=== PATIENT | female | born 1995 | race Caucasian/White ===

== ENCOUNTER 2018-01-24 10:21 | Emergency (ER) | payer BC, OTHER ==
[2018-01-24 10:39] VITALS: BP 112/70
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
--- NOTE | 2018-01-24 11:47 | RAD ---
Indication: Right ankle injury. 3 views of the right ankle demonstrate soft tissue swelling laterally. Ankle mortise is intact. IMPRESSION: No fracture of the right ankle is noted. Soft tissue swelling is noted laterally.
--- NOTE | 2018-01-24 11:48 | RAD ---
Indication: Right lower leg injury. 2 views of the right lower leg demonstrates no fracture. No other bone or joint abnormality is identified. IMPRESSION: No fracture of the right lower leg is present.
== END 2018-01-24 12:15 | disposition home or self-care (01) ==
LOC: UCEAST 10:21
DX: M25.571 Pain in right ankle and joints of right foot (principal)
CPT/HCPCS: 99212; G0463

== ENCOUNTER 2018-05-20 14:55 | Emergency (ER) | payer OTHER ==
[2018-05-20 15:05] VITALS: BP 122/82
--- NOTE | 2018-05-20 16:20 | UC ---
Throat Pain/Nasal Fritz HPI - HPI Summary HPI Summary: 23-year-old female presents with 3 week history of sore throat and bilateral ear pain. Associated with severe fatigue. Denies fever, chills, nasal congestion, nasal drainage, dysphagia, cough, chest pain, shortness of breath, abdominal pain, nausea, or vomiting. - History of Current Complaint Chief Complaint: UCRespiratory Stated Complaint: SORE THROAT,EAR PAIN,COLD Time Seen by Provider: 05/20/18 16:02 Hx Obtained From: Patient Hx Last Menstrual Period: now Onset/Duration: Lasting Weeks - 3 Severity: Moderate Pain Intensity: 4 Cough: None Associated Signs & Symptoms: Negative: Dysphagia, Drooling, Wheezing, Hoarseness , Sinus Discomfort, Nasal Discharge, Fever, Vomiting, Rash - Allergies/Home Medications Allergies/Adverse Reactions: Allergies Allergy/AdvReac Type Severity Reaction Status Date / Time No Known Allergies Allergy Unverified 05/20/18 15:06 PMH/Surg Hx/FS Hx/Imm Hx Previously Healthy: Yes - Denies significant PMH - Surgical History Surgical History: Yes Surgery Procedure, Year, and Place: oral - Family History Family History: Noncontributory - Social History Occupation: Employed Full-time Lives: With Family Alcohol Use: Occasionally Substance Use Type: None Smoking Status (MU): Never Smoked Tobacco Review of Systems Constitutional: Negative Skin: Negative Eyes: Negative ENT: Sore Throat, Ear Ache Respiratory: Negative Cardiovascular: Negative Gastrointestinal: Negative Is Patient Immunocompromised?: No All Other Systems Reviewed And Are Negative: Yes Physical Exam Triage Information Reviewed: Yes Appearance: Well-Appearing, No Pain Distress, Well-Nourished Vital Signs: Initial Vital Signs Temp 97.8 F 05/20/18 15:03 Pulse 71 05/20/18 15:03 Resp 18 05/20/18 15:03 BP 122/82 05/20/18 15:03 Pulse Ox 99 05/20/18 15:03 Eyes: Positive: Conjunctiva Clear. Negative: Discharge ENT: Positive: Hearing grossly normal, Pharyngeal erythema, TMs normal, Tonsillar swelling - 2+, Uvula midline. Negative: Nasal congestion, Nasal drainage, Tonsillar exudate, Trismus, Muffled voice, Hoarse voice, Sinus tenderness Neck: Positive: Supple, Nontender, No Lymphadenopathy Respiratory: Positive: Lungs clear, Normal breath sounds, No respiratory distress Cardiovascular: Positive: RRR, No Murmur, Pulses Normal Abdomen Description: Positive: No Organomegaly, Soft, Other: - Mild LUQ tenderness. Negative: Distended, Guarding Bowel Sounds: Positive: Present Neurological: Positive: Alert Skin Exam: Normal Diagnostics - Laboratory Diagnostic Studies Completed/Ordered: rapid strep negative Throat Pain/Nasal Course/Dx - Course Course Of Treatment: 23-year-old female presents with 3 week history of sore throat and fatigue. Exam reveals some pharyngeal erythema mild tonsillar edema without exudate. She did have some mild left upper quadrant tenderness to her abdomen although there was no organomegaly appreciated. Rapid strep was negative. Considering the duration of her symptoms have a high suspicion for mononucleosis. Will test for confirmation. Recommend continued symptomatic treatment. She is to follow-up with primary care provider if symptoms persist. Warning symptoms were discussed with the patient. Verbalizes understanding and agrees with plan of care. - Differential Dx/Diagnosis Differential Diagnosis/HQI/PQRI: Mononucleosis, Pharyngitis, Tonsillitis Provider Diagnoses: Viral pharyngitis Discharge - Sign-Out/Discharge Documenting (check all that apply): Patient Departure All imaging exams completed and their final reports reviewed: No Studies - Discharge Plan Condition: Stable Disposition: HOME Patient Education Materials: Pharyngitis (ED) Referrals: Lucie Parrish [Primary Care Provider] - Additional Instructions: Rapid strep test performed in the clinic today was negative. Considering the duration of your symptoms and the extreme fatigue that you are reporting your symptoms are suspicious for mononucleosis. We will test you for mono today. It will take several days to get these results back. [place] is a viral infection and does not respond to antibiotics and needs to run its course. It may take several weeks to fully recover from this infection if it is mono. Be sure to get plenty of rest. Drink plenty of fluids and stay well-hydrated. Use salt water gargles several times a day to help with the sore throat. Take an bnhr-awq-cljksto pain medication such as acetaminophen (Tylenol) or ibuprofen (Advil, Motrin) according to directions as needed for pain. You may use Chloraseptic spray or Cepacol lozenges for some temporary pain relief from your sore throat. Follow-up with your primary care provider if symptoms continue to persist. Seek immediate medical attention if you develop fever greater than 100.5 F, have worsening of pain despite use of [id number] pain medications, you're unable to swallow, have difficulty breathing, or any worsening of symptoms. - Billing Disposition and Condition Condition: STABLE Disposition: Home
--- NOTE | 2018-05-22 16:53 | UC ---
- Progress Note Progress Note: neg mono + EBV Ag and IgG No change breanne 05/22/18 Discharge - Sign-Out/Discharge Documenting (check all that apply): Post-Discharge Follow Up All imaging exams completed and their final reports reviewed: No Studies - Discharge Plan Condition: Stable Disposition: HOME Patient Education Materials: Pharyngitis (ED) Referrals: Lucie Parrish [Primary Care Provider] - Additional Instructions: Rapid strep test performed in the clinic today was negative. Considering the duration of your symptoms and the extreme fatigue that you are reporting your symptoms are suspicious for mononucleosis. We will test you for mono today. It will take several days to get these results back. [place] is a viral infection and does not respond to antibiotics and needs to run its course. It may take several weeks to fully recover from this infection if it is mono. Be sure to get plenty of rest. Drink plenty of fluids and stay well-hydrated. Use salt water gargles several times a day to help with the sore throat. Take an sntj-hgn-gptxxap pain medication such as acetaminophen (Tylenol) or ibuprofen (Advil, Motrin) according to directions as needed for pain. You may use Chloraseptic spray or Cepacol lozenges for some temporary pain relief from your sore throat. Follow-up with your primary care provider if symptoms continue to persist. Seek immediate medical attention if you develop fever greater than 100.5 F, have worsening of pain despite use of ywkn-can-hrdjiuf pain medications, you're unable to swallow, have difficulty breathing, or any worsening of symptoms. - Billing Disposition and Condition Condition: STABLE Disposition: Home
== END 2018-05-20 16:42 | disposition home or self-care (01) ==
LOC: UCEAST 14:55
DX: J02.8 Acute pharyngitis due to other specified organisms (principal); R53.83 Other fatigue
CPT/HCPCS: 36415; 86308; 86664; 86665; 87651; 99211; G0463

== ENCOUNTER 2019-10-15 10:06 | Emergency (ER) | payer OTHER ==
--- OUTSIDE RECORDS SUMMARY | 2019-10-15 10:24 | XMS REPORT | Continuity of Care Document ---
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 Abstracted:2011 ; Source: New Immunization Record DTaPHib administered Note: Abstracted:03/26/2012 ; Source: New Immunization Record polio, inactivated (IPV) administered Note: Abstracted:2011 ; Source: New Immunization Record hep B (ped/adol, 3 dose) administered Note: Abstracted:2011 ; Source: New Immunization Record hep B (ped/adol, 3 dose) administered Note: Abstracted:2011 ; Source: New Immunization Record Payers Payer name Insurance type Covered republican ID Authorization(s) Anabelle Boggs [id number] Social History Type Description Quantity Date Captured Comments Alcohol Use Details Caffeine Use Details soda occ per day Tobacco Use Status Unknown Smoking Status Never smoker Non-Smoking Tobacco : No Details Available : No Details Available 2019 Use Details Vital Signs Date / Height Weight BMI Pulse Blood Temperature Respiratory Body Head BMI Time: Rate Pressure Rate Surface Circumference percentile Area 67.00 237.22 37.1 88 106/80 98.40 F 16 /min 09.22 in lbs 5 /min mm[Hg] meter(2) 3:27 kg/m PM eter (2) Chief Complaint And Reason For Visit Most recent encounter only, dated '08/16/2019 15:00'. Sore throat (chief complaint). Description: The problem is severe. Pain scale: 7/10. Additional information: Symptoms started 08/13/2019. Per patient, headache, neck pain , difficult to move neck. Both ears painful and dizzy. ibuprofen with little effect. Reason For Referral Reason For Referral Unknown Plan Of Care Date Type Action Status Referral Referred To: ordered JORDAN MCKENZIE MD [address] [place], [address] [phone] Ordered: Referrals: Orthopedic Surgery. JORDAN MCKENZIE MD. Evaluate and treat Appointment date/timeframe: 02/02/2018 Referral Ordered: ordered Xray Spine Cervical Referral Ordered: ordered Xray Spine Lumbar complete Referral Ordered: ordered Xray Spine Thoracic complete Referral Referred To: ordered AVRIL VICTORIA MD [address] [facility] [address] [place], [address] [phone] Ordered: Referrals: Obstetrics. AVRIL VICTORIA MD. Evaluate and treat Referral Ordered: ordered Xray Shoulder Complete (Must choose side) Left Referral Referred To: ordered SUZIE CHAPARRO [address] [place], [address] [phone] Ordered: SUZIE CHAPARRO. Nutrition. Consult and treat. Referral Ordered: ordered U/S Abdomen complete Referral Ordered: ordered U/S Abdomen limited (for spec organ, must value organ in site) Referral Ordered: ordered U/S OB Follow-up Referral Ordered: ordered U/S OB 1st trimester <14 weeks Referral Ordered: ordered U/S Transvaginal TECHNICAL DATA ANALYST Date Type Problem Goal Intervention Status Start Date Unknown History Of Present Illness Encounter Date Complaint History Of Present Illness Sore throat The problem is severe. Pain scale: 7/10. Additional information: Symptoms started 08/13/2019. Per patient, headache, neck pain, difficult to move neck. Both ears painful and dizzy. ibuprofen with little effect. Functional Status Encounter Date Functional Assessment Cognitive Assessment N/A Orientation - Oriented to time, place, person, situation. Medications Administered Medication Instructions Dosage Effective Dates (start - stop) Status Comments Drug Treatment Unknown Instructions Date Instruction Additional Information Start amoxicillin , two twice a day Related to Strep pharyngitis for ten days, Routine carePAP/HPVRGC/chl (not Related to Routine gynecological interested in bloodwork)lidocaine TID examination for vestibulits- discussed and followup 2 weeks- also d/w pt OTC recticare if ins will not cover. Constipation discussed try no gluten and see if better PT will continue her healthy diet, Related to Edema, unspecified increase fiber, continue water intake of 115 ounces per day , decrease sugar in the diet and call for further needs or concerns. PT's lipomas are benign and she will Related to Multiple lipomas continue to monitor those areas and call for further needs or concerns. Labs ordered , pt will stay under Related to Weight gain with edema 2000mg of sodium per day and will continue to drink plenty of fluids. PT will use Silvadene cream twice per Related to Sunburn day until the sunburn resolves. Continue to drink plenty of fluids. Risks and benefits of new Related to Acute non-recurrent medication discussed. Start frontal sinusitis azithromycin. drink plenty of fluids. Use an expectorant. small cyst vaginal- hot compresses- Related to Vaginal cyst call if changes followup 2 months and if still present will presley routine carePAPGC/chlpelvic pain- Related to Routine gynecological check pelvic US adn culturesirreg examination bleeding - consider patch or ring as does not think will remember BCP- pt will considerdysmenorrhea- discussed motrin/ naprosyn around the clock 24-48 hrs adn take TREY with menses. xray of thoracic and lumbar were Related to Acute back pain, negative, will take ibuprofen and unspecified back location, tizanidine, muscle relaxer and if unspecified back pain laterality symptoms persist or become more pronounced then follow up with primary doctor for a possible referral and MRI. neck pain , will prescribe Ibuprofen Related to Neck pain with tenderness and tizanidine muscle relaxer Avoid of neck after whiplash injury to heavy lifting or straining. Apply Ice neck alternating with heat, and use otc NSAIDs such as naproxen or Ibuprofen as needed.Followup with your primary physician in 5-7 days for recheck, sooner if new or worsening symptoms occur. Thank you for choosing the [facility] Walk In. We hope that you will be feeling better soon.Any condition can change and some diseases may worsen despite proper treatment. Other problems may begin with vague or unusual symptoms and only over time will the problem become more clear, making it possible to arrive at the correct diagnosis. Your visit today is not a substitute for, or an effort to provide complete medical care. In most cases, you should let your primary care doctor check you again. Tell your doctor about any new or lasting problems. If you do not have a primary care provider, you have been given a list today of local providers who are accepting new patients. All x-rays are interpreted by a radiologist, usually within 48 hours. If there is any important difference between the radiologist's interpretation and what you were told today by the provider, you will be notified. If you had cultures done today, results will be available in 72 hours, depending on specimen. Get lots of rest. Maintain good clear Related to Viral URI fluid intake to stay well hydrated. Frequent handwashing to prevent spread of germs. Please avoid exposure to tobacco smoke and/or polluted air. You can use Otc cough and cold medications such as Afrin nasal spray and robitussin to help with symptoms. Take Tylenol (acetaminophen), Advil(ibuprofen), or alleve(naproxen) as needed for fever or aches, dosage according to package directions. Please follow-up with your primary care provider within 1 week for recheck.You can return to work or school when fever free for 24 hours without the use of fever reducing medication.- Thank you for choosing the [facility] Walk In. We hope that you will be feeling better soon.Any condition can change and some diseases may worsen despite proper treatment. Other problems may begin with vague or unusual symptoms and only over time will the problem become more clear, making it possible to arrive at the correct diagnosis. Your visit today is not a substitute for, or an effort to provide complete medical care. In most cases, you should let your primary care doctor check you again. Tell your doctor about any new or lasting problems. If you do not have a primary care provider, you have been given a list today of local providers who are accepting new patients. All x-rays are interpreted by a radiologist, usually within 48 hours. If there is any important difference between the radiologist's interpretation and what you were told today by the provider, you will be notified. If you had cultures done today, results will be available in 72 hours, depending on specimen.- INcrease fluids, rest and take advil Related to Upper respiratory cold and sinus as needed for symptom infection, viral relief , use the fluticasone two sprays in each nostril one time per day and call for further needs or concerns. 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 Options- try progesterone to stabilize endometrium, Or BCP/ estrogen- rec condoms if do- for a time to regulate. Pt considering nexplanon removal as well. If so consider BCP or patch or ring- d/w pt. Also sine pain right continueing rec go ahead with US to make sure not increasing cyst. routine carePAPpelvic pain adn Related to Routine gynecological ovarian cyst- recheck US 2 months examination unless further issuesrecheck pelvic in 1-2 weeks Ultrasound ordered, as well as labs, Related to Left ovarian cyst will call after ultrasound is completed. Pt will have her labs drawn and will Related to Discharge of breast follow up after those are drawn. Pt is encouraged not to express the milky substance or stimulate her breasts. SHe has had no abnormal coloration of the discharge and will report if it becomes bloody, green or black in color. Labs ordered, will follow up upon Related to Irregular periods completion. Labs were reviewed with the patient , Related to Fatigue, unspecified type she is feeling better at this time and will continue her current control. She will call for further needs or concerns. Pt will use the doxycycline two Related to Tick bite of knee, left, tablets prophylactically. Call for initial encounter ^ any fever, rash or concerns. nexplanon removed. desires rpegnancy. Related to Nexplanon removal PNV recommended. instructions given. Heat, stretching and light activity . Related to Chronic bilateral low Get a new chair so you can sit back pain without sciatica ergonomicly. routine carePAPGC/chlcheck TSH H/H Related to Encounter for bec heavy bleeding gynecological examination (general) (routine) without abnormal findings This should respond to heat and Related to Chronic tension-type gentle stretching. headache, intractable If symptoms persist call and we will Related to Muscle weakness evaluate further. If there is continuing concern, we Related to Difficulty hearing can refer for formal audiology. Pt will increase her fluids , rest Related to Otitis media and will call for further needs or concerns. Use the amoxil two capsules twice a day for 10 days and use the diflucan if needed for yeast infection and use a back up method of control for the next month. Thank you for choosing the Related to Shoulder injury [place] [facility]. We hope and expect that you will be feeling better soon.Any condition can change and some diseases may worsen despite proper treatment. Other problems may begin with vague or unusual symptoms and only over time will the problem become more clear, making it possible to arrive at the correct diagnosis. Your visit today is not a substitute for, or an effort to provide complete medical care. In most cases, you should let your primary care doctor check you again. Tell your doctor about any new or lasting problems. If you do not have a primary care provider, you have been given a list today of local providers who are accepting new patients. All x-rays are interpreted by a radiologist, usually within 48 hours. If there is any important difference between the radiologist's interpretation and what you were told today by the provider, you will be notified. If you had cultures done today, the results will generally be availab Start amoxicillin. Related to Cystitis Discussed with patient about healthy Related to Routine health visit and lifestyle, SBE and diet. cultures follow-up examination after done. d/w pt about contraception childbirth options . reading info given. interested in nexplanon. [facility] ordered. no SI/HI Return to office in 1 week with NST. Related to Supervision, normal first Monitor daily movement, DFMR x3. Call for any bleeding. leaking fluid, cramping/contractions or any concerns. rest, stay well hydrated. Return to office in 1 week with NST. Related to Gravid uterus size for Monitor daily movement, DFMR dates discrepancy x3. Call for any bleeding. leaking fluid, cramping/contractions or any concerns. Return to office in 1 week. Monitor Related to Complication oth spec daily movement, DFMR x3. Call preg, antepartum for any bleeding. leaking fluid, cramping/contractions or any concerns. Return to office in 2 weeks. Call Related to Supervision, normal first for any bleeding. leaking fluid, cramping/contractions or any concerns. Monitor daily movement, DFMR x3. Return to office in 2 weeks. Call Related to Supervision, normal first for any bleeding. leaking fluid, cramping/contractions or any concerns Monitor daily movement, DFMR x3. Saw dieticien yesterday. doing GDS Related to Excessive weight gain in today. Return to office in 2 weeks. Monitor Related to Supervision, normal first daily movement, DFMR x3. Call for any bleeding. leaking fluid, cramping/contractions or any concerns. D/W PT ABOUT BACK PAIN. EXERCISES GIVEN. D/W PT ABOUT omt AND MATERNITY CRADLE.
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
--- NOTE | 2019-10-15 10:56 | UC ---
Respiratory Complaint HPI - HPI Summary HPI Summary: 24-year-old woman comes in with a chief complaint of one week of upper respiratory tract infection symptoms are not getting worse with more shortness of breath. No history of asthma she has used albuterol nebulizer which does help for about an hour. She reports a fever at home. She has bodyaches feels ill. No known contact to Covid 19. Does not feel congestion in her chest and chest tightness. - History of Current Complaint Stated Complaint: DIFF BREATHING,FEVER,ACHES,HEADACHE Time Seen by Provider: 10/15/19 10:32 Hx Last Menstrual Period: now - Allergies/Home Medications Allergies/Adverse Reactions: Allergies Allergy/AdvReac Type Severity Reaction Status Date / Time No Known Allergies Allergy Verified 10/15/19 10:37 Home Medications: Home Medications Albuterol HFA INHALER* [Ventolin HFA Inhaler*] 2 puff INH Q4H PRN #1 mdi [Rx] Azithromyxin ANTONI (NF) [Z-Antoni (Zithromax) 250 mg tabs #6] 2 tab PO .TODAY, THEN 1 DAILY #6 tab 10/15/19 [Rx] PMH/Surg Hx/FS Hx/Imm Hx Previously Healthy: Yes - Surgical History Surgical History: Yes Surgery Procedure, Year, and Place: oral - Family History Known Family History: Positive: None Family History: Noncontributory - Social History Alcohol Use: Occasionally Substance Use Type: None Smoking Status (MU): Never Smoked Tobacco Review of Systems All Other Systems Reviewed And Are Negative: Yes Constitutional: Positive: Fever, Other - see hpi Skin: Positive: Negative Eyes: Positive: Negative ENT: Positive: Sore Throat, Nasal Discharge, Sinus Congestion Respiratory: Positive: Shortness Of Breath - see hpi, Cough Cardiovascular: Positive: Other - see hpi Gastrointestinal: Positive: Negative Motor: Positive: Negative Neurovascular: Positive: Negative Musculoskeletal: Positive: Myalgia Neurological/Mental Status: Positive: Negative Psychological: Positive: Negative Is Patient Immunocompromised?: No Physical Exam - Summary Physical Exam Summary: Examination findings are limited as my examination was limited to telemedicine. Triage Information Reviewed: Yes Appearance: No Pain Distress, Well-Nourished, Ill-Appearing - mild Vital Signs Reviewed: Yes Eyes: Positive: Conjunctiva Clear ENT: Negative: Nasal drainage Neck: Positive: Supple Respiratory: Positive: Respiratory distress - mild Musculoskeletal: Positive: Strength Intact Neurological: Positive: Alert Psychological: Positive: Age Appropriate Behavior Respiratory Course/Dx - Course Course Of Treatment: Bead Wire Taper: Archie Linder ([id number]) Technical Planner: LINDA (LINDA) Report Date: 10/15/2019 11:54:00 Report Status: Final Start of Report Content Patient Name: SHIRA CASTRO Medical Record#: [id number] Ordering Physician: Lenny Bryan MD Acct.#: [id number] : Age: 24 Sex: F Location: [facility] Exam Date: 10/15/19 1046 ADM Status: REG ER Order Information: CHEST PA LAT 2 VWS Accession Number: [id number] CPT: 68544 INDICATION: COMPARISON: There are no relevant prior studies available for comparison. TECHNIQUE: Dual-energy PA and lateral views of the chest were obtained. FINDINGS: The lungs are clear. There is no pleural effusion. The cardiomediastinal silhouette is within normal limits. The upper abdominal contents are normal. Osseous structures are unremarkable. IMPRESSION: No acute cardiopulmonary process by radiograph. <Electronically signed by Archie Linder MD in OV> [id number] Dictated By: Archie Linder MD Dictated Date/Time: 10/15/19 1149 Transcribed Date/Time: 10/15/19 114 Copy to: CC:Lucie MARTINEZ; Lenny Bryan MD Imaging - [facility] Imaging - [facility] [address] [place] [address] [place] [address] ph ([phone]) ph ([phone]) ph ) End of Report Content I discussed the x-rays with the patient. Patient's had symptoms for 7 days I discussed viral verses bacterial infection and the role of antibiotics patient prefers to be on antibiotics at this time. We'll treat with azithromycin. Also give the patient prescription for albuterol inhaler to be used as needed. I let her know that we are testing for Covid and she'll need to be an self- isolation. Following up with [facility]. I also let her know that nebulizer treatment can aerosolize the Covid 19 virus making it more dangerous. I recommended that she does not use the nebulizer and that she should use clean tubing for her daughter which we did provide. Patient is to go to the emergency department if worse. - Differential Dx/Diagnosis Provider Diagnosis: Bronchitis with bronchospasm Discharge ED - Sign-Out/Discharge Documenting (check all that apply): Patient Departure All imaging exams completed and their final reports reviewed: Yes - Discharge Plan Condition: Stable Disposition: HOME Prescriptions: Albuterol HFA INHALER* [Ventolin HFA Inhaler*] 2 puff INH Q4H PRN #1 mdi PRN Reason: Wheezing Azithromyxin ANTONI (NF) [Z-Antoni (Zithromax) 250 mg tabs #6] 2 tab PO .TODAY, THEN 1 DAILY #6 tab Patient Education Materials: Acute Bronchitis (ED), Bronchospasm (ED) Forms: *Work Release, COVID-19 Tested & Isolation Referrals: Lucie Parrish [Primary Care Provider] - Additional Instructions: PLACE YOURSELF IN HOME ISOLATION. [facility]. CONTACT THEM TOMORROW IF YOU HAVE NOT HEARD FROM THEM. FOLLOW UP WITH YOUR DOCTOR IF NOT COMPLETELY IMPROVED. GO TO THE EMERGENCY DEPARTMENT IF NOT IMPROVED OR WORSE OR ANY QUESTIONS OR CONCERNS. - Billing Disposition and Condition Condition: STABLE Disposition: Home
[2019-10-15 11:09] VITALS: BP 121/80
[2019-10-15 11:09] LABS: Influenza A Molecular Negative (Negative); Influenza B Molecular Negative (Negative)
== END 2019-10-15 12:30 | disposition home or self-care (01) ==
LOC: UCEAST 10:06
DX: J20.9 Acute bronchitis, unspecified (principal); Z20.828 Contact with and (suspected) exposure to other viral communicable diseases
CPT/HCPCS: 71046; 84702; 87651; 99212; G0463; U0002